=== PATIENT | female | born 1945 | race Caucasian/White ===

== ENCOUNTER 2025-09-09 10:07 | Emergency (ER) | payer MEDICARE, OTHER, SELFPAY ==
[2025-09-09] VITALS (13 sets, daily range): BP systolic 115–162; BP diastolic 63–95; PULSE 60–77; TEMP 36.1; O2SAT 94–98; BMI 21.1
--- OUTSIDE RECORDS SUMMARY | 2025-09-09 10:46 | XMS_ITS | Clinical Summary ---
Author Organization [facility] Address [address] [place] [address] Phone Care Team Providers Care Telephoner Name Role Phone Unavailable Primary Care Provider Unavailabl e Social History Tobacco UseTypesPacks/DayYears UsedDateSmoking Tobacco: Never Assessed CommentsUnknownSex and Gender InformationValueDate RecordedSex Assigned at Not on fileLegal YppVnajcf68/25/2022 4:55 PM ESTGender IdentityNot on fileSexual OrientationNot on file Plan of Treatment Not on file
--- NOTE | 2025-09-09 10:53 | ECG_ITS ---
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
--- NOTE | 2025-09-09 10:54 | CT_ITS ---
[address] [address] Patient Name: JACKIE MINOR MRN: [id number] date: 1945 Sex: F Assigned Patient Location: ER Current Patient Location: ER Accession/Order Number: [id number] Exam Date: 09/09/2025 11:05 Report Date: 09/09/2025 11:29 At the request of: FLACO GUEVARA MD Procedure: CT head/brain wo con Unenhanced head CT TECHNIQUE: Contiguous axial imaging of the head. The CT exam was performed using one or more the following dose reduction techniques: Automated exposure control, adjustment of the MA and/or Kv according to patient size, or use of the iterative reconstruction technique. COMPARISON: None HISTORY: Altered mental status. VENTRICLES: Within normal limits ATROPHY: Diffuse atrophy BRAIN PARENCHYMA: Decreased density of the white matter is most consistent with chronic small vessel disease. HEMORRHAGE: None HERNIATION: No mass effect or herniation INFARCTION: No recent vascular distribution infarction is seen. EXTRA-AXIAL FLUID COLLECTIONS None MIDBRAIN: Unremarkable GHADA: Unremarkable MEDULLA: Unremarkable SINUSES: Unremarkable ORBITS: Grossly unremarkable MASTOIDS: Unremarkable BONY STRUCTURES Intact ADDITIONAL FINDINGS: CT/CT head/brain wo con IMPRESSION: No acute findings. Impression dictated by: Flaco Baeza M.D. 09/09/2025 11:29 AM Dictation Location: [place] [address] Electronically authenticated by: [id number] Y Date: 09/09/2025 11:29
--- NOTE | 2025-09-09 10:55 | ED.GENADUL1 ---
HPI HPI - General Adult General Chief complaint: Altered Mental Status Stated complaint: HIGH BLOOD PRESSURE Time Seen by Provider: 09/09/25 10:12 Source: other Source information: ems Mode of arrival: ambulance History of Present Illness HPI narrative: Patient is a 80-year-old female who is presenting to the ER with chief complaint of intermittent combativeness, agitation. Is also noted the patient's blood pressure was in the 160s/100s. Patient has a history of Alzheimer's. Patient's daughter and sister at bedside, they are both power of ip technology transactions attorney's. Patient was given a dose of intramuscular 2.5 mg of Versed prior to arrival. Patient stays at a local nursing facility. Patient has Alzheimer's. Patient's baseline is alert and orient x 0. Patient arrives as a full code. Patient did eat breakfast this morning with no difficulty. There was a concern the patient was leaning to the left when she was walking the [place]. Patient normally walks with her 2 feet. Patient was suggested to come to the ER for evaluation from family. There is no other strokelike signs or symptoms that has been noted. When patient arrived, her blood pressure was not critically elevated, and she was calm, Versed has helped. Unless otherwise stated in this report or unable to obtain because of the patient's clinical or mental status as evidenced by medical record, the patient's positive and negative responses for review of systems for constitutional, eyes, ENT, cardiovascular, respiratory, gastrointestinal, neurological, , musculoskeletal, and integument systems and related systems to the presenting problem are either stated in the history of present illness or were not pertinent or were negative for the symptoms and/or complaints related to the presenting medical problem. Nurses note and vital signs reviewed and patient is not hypoxic. General: The patient appears well and in no apparent distress. Patient is resting comfortably on cart. Patient is not toxic, lethargic, or listless Skin: Warm, dry, no pallor noted. Patient has bilateral breast excoriation and chronic fungal infection underneath both breast, right greater than left. Underneath patient's bilateral breast, there is redness, excoriation and irritation, no secondary signs of abscess or drainage. Patient is prescribed daily antifungal medication to help with this. Jackie PERSAUD was at bedside when bilateral breasts were evaluated. Patient was rolled over to left lateral decubitus position. Patient has no evidence of stage I or stage II ulcerations. No signs of secondary infection. Patient was rolled back over. Yeah. No petechiae, purpura. Head: Normocephalic, atraumatic Eye: Normal conjunctiva, no drainage, EOMI. PERRL Ears, Nose, Mouth, and Throat: oral mucosa is moist. Nares patent. Mouth without vesicles. Cardiovascular: Regular Rate and Rhythm, no murmur, gallop, rub Respiratory: Patient is in no distress, no accessory muscle use, lungs are clear to auscultation, no wheezing, rales or rhonchi Back: non-tender, no CVA tenderness bilaterally to percussion. No CT LS midline pain GI: no tenderness to palpation, no masses appreciated. No rebound, guarding, or rigidity noted. No distention Musculoskeletal: Patient has full range of motion of all of the extremities, no motor, sensory, or focal neurological deficits Neurological: A&O x\0, patient is at her normal baseline., Minimal speech which is her normal baseline Psychiatric: Cooperative Related Data Home Medications ?Medication ?Instructions ?Recorded ?Confirmed atorvastatin 10 mg tablet 10 mg PO DAILY 09/09/25 09/09/25 donepezil 23 mg tablet 23 mg PO .QHS 09/09/25 09/09/25 dorzolamide 22.3 mg-timolol 6.8 1 drp ophthalmic (eye) Q12H 09/09/25 09/09/25 mg/mL eye drops lisinopril 10 mg tablet 10 mg PO DAILY 09/09/25 09/09/25 memantine 21 mg capsule 21 mg PO DAILY 09/09/25 09/09/25 sprinkle,extended release 24hr sertraline 100 mg tablet 100 mg PO .QHS 09/09/25 09/09/25 Previous Rx's ?Medication ?Instructions ?Recorded risperidone 1 mg tablet (Risperdal) 1 mg PO .qhs #10 tabs 09/09/25 Allergies Allergy/AdvReac Type Severity Reaction Status Date / Time No Known Drug Allergies Allergy Verified 09/09/25 10:21 Exam Constitutional Vital Signs, click to edit/add: Last Vital Signs Temp 97 F L 09/09/25 10:11 Pulse 63 09/09/25 11:00 Resp 21 H 09/09/25 11:00 BP 162/95 H 09/09/25 17:13 Pulse Ox 97 09/09/25 11:27 O2 Del Method Room Air 09/09/25 10:11 Course Vital Signs Vital signs: Vital Signs Temperature 97 F L 09/09/25 10:11 Pulse Rate 60 09/09/25 10:11 Respiratory Rate 20 09/09/25 10:11 Blood Pressure 115/68 09/09/25 10:11 Pulse Oximetry 97 09/09/25 10:11 Oxygen Delivery Method Room Air 09/09/25 10:11 Temperature 97 F L 09/09/25 10:11 Pulse Rate 63 09/09/25 11:00 Respiratory Rate 21 H 09/09/25 11:00 Blood Pressure 162/95 H 09/09/25 17:13 Pulse Oximetry 97 09/09/25 11:27 Oxygen Delivery Method Room Air 09/09/25 10:11 Medical Decision Making MDM Narrative Medical decision making narrative: Patient seen and examined: Patient had options of testing discussed with daughter and sister at bedside. Patient has no strokelike signs or symptoms during the initial evaluation. Recommendations and patient and sister agree with performing stroke evaluation, hydrating patient and make sure there is no other acute findings or etiology at this time. Differential diagnosis includes but is not limited to: Intracranial hemorrhage, brain mass, stroke, dehydration, electrolyte abnormality, hypoglycemia, ACS, UTI Relevant laboratory interpretation: Sodium was 151, potassium 3.1, chloride 114 Radiological studies: CT of the brain, Reevaluation: Patient was picking and irritated with her IV, IV was removed because patient was becoming more agitated. However we attempted to give patient Ativan through IV to left arm, and it was not functioning properly. IV was taken out. Patient and daughter and sister agreed with giving patient 2 shots of Ativan and droperidol to help with agitation and combativeness, patient was trying to get out of bed and is starting to get slightly combative and agitated. Patient was given IM injection of Ativan and droperidol. Patient was sedated and peaceful. Once patient's lab work came back, I discussed the results with patient's daughter and sister. Patient would benefit from an IV, IV fluids, IV potassium and oral potassium when she wakes up secondary to dehydration. Patient's daughter and sister agree. Patient was given 1 L of half-normal saline, along with oral potassium and IV potassium. 25 minutes was spent speaking on patient's CODE STATUS. Patient's daughter and sister both agree that they do not want patient to be a full code as initially stated in the paperwork. Patient daughter and sister are both power of ip technology transactions attorney's. After lengthy discussion of DNR CCA versus DNR CC, they have chosen DNR CC for this patient. Patient has had Alzheimer's and been in a nursing facility for 7 years. Social barriers to healthcare: There are no food insecurities, there is no issue with transportation, there are no insurance barriers. Disposition: Patient responded well to IV fluids and IV potassium. Patient will be discharged. Patient is now DNR CC. Patient daughter and sister are very thankful. Patient has been in the ER for over 6 hours. Patient has continuously been monitored. EKG interpretation. Normal sinus rhythm at 61 beats a minute. Left axis deviation. No acute ST elevation, no acute ectopy. QTc of 410. Artifact seen. 1218 patient required IM shots to help with sedation and combativeness, IM Ativan and droperidol. It took over 1.5 hours to get a hold of Dr. Navdeep Valiente, . 1235 I did speak to KINZA multiple times from the nursing facility, she is the resource development director. We were calling the facility, try to see how to get a hold of Dr. NAVDEEP Valiente. Several pages were called to him, [facility] to see who is covering his phone calls, then I eventually was able to get his cell phone number. I called left a message along with texting him. He finally was able to call me back in the ER, Dr. Valiente. He apologized, he was outside working and I was very thankful for his phone call. He recommended Risperdal 1 mg at nighttime oral, along with Ativan 1 mg oral as needed. Prescriptions were written and daughter and sister agree. Patient daughter in sister both agree with trying oral medication first instead of sending her to [facility] for admission for evaluation of advancing Alzheimer's, combativeness and agitation. Significant amount of time was spent with end-of-life care discussions, helping manage patient's agitation, try to get a hold of the nursing agency manager Alanna and patient's PCP Dr. Valiente, watching patient while she was getting IV fluids and IV potassium, and final disposition. Treatment of hypokalemia, hyponatremia, hypochloremia. And dehydration. Critical care time 47 minutes exclusive from separate billable procedures that were performed. The following was considered in the determination of critical care but not limited to the level of medical decision making, intensive cardiac and/or respiratory monitoring, frequent vital sign monitoring, evaluation of laboratory studies, evaluation of radiographic studies, oxygen monitoring, and constant monitoring and speaking to family at bedside Lab Data Labs: Lab Results 09/09/25 09/09/25 Range/Units 11:37 13:07 WBC 8.8 (4.0-11.0) 10^3/uL RBC 3.49 L (4.20-5.40) 10^6/uL Hgb 11.7 L (12.0-16.0) g/dL Hct 35.8 L (36.0-48.0) % MCV 102.6 H (81.0-99.0) fL MCH 33.5 (26.7-34.0) pg MCHC 32.7 (29.9-35.2) g/dL RDW 14.0 (11.0-15.0) % Plt Count 236 (150-450) 10^3/uL MPV 10.2 (9.5-13.5) fL Neut % (Auto) 77.6 H (43.0-75.0) % Lymph % (Auto) 11.1 L (20.5-60.0) % Cottle % (Auto) 7.3 (1.7-12.0) % Eos % (Auto) 3.4 (0.9-7.0) % Baso % (Auto) 0.3 (0.2-2.0) % Neut # (Auto) 6.8 H (1.4-6.5) 10^3/uL Lymph # (Auto) 1.0 L (1.2-3.8) 10^3/uL Cottle # (Auto) 0.6 (0.3-0.8) 10^3/uL Eos # (Auto) 0.3 (0.0-0.7) 10^3/uL Baso # (Auto) 0.0 (0.0-0.1) 10^3/uL Abs Immat Gran (auto) 0.03 (0.00-0.03) 10^3/uL Imm/Tot Granulo (auto) 0.3 (0.0-0.5) % Sodium 151 H (136-145) mmol/L Potassium 3.1 L (3.5-5.1) mmol/L Chloride 114 H (98-107) mmol/L Carbon Dioxide 30.2 (21.0-32.0) mmol/L Anion Gap 9.9 BUN 17.0 (7.0-18.0) mg/dL Creatinine 0.74 (0.55-1.02) mg/dL Est GFR ( Amer) >60 (>=60 mL/min/1.73m^2) Est GFR (Non-Af Amer) >60 (>=60 mL/min/1.73m^2) BUN/Creatinine Ratio 23.0 Glucose 107 H (74-106) mg/dL Calcium 9.5 (8.5-10.1) mg/dL Magnesium 2.1 (1.8-2.4) mg/dL Troponin I High Sens 6.8 (4.0-51.3) pg/mL Urine Color Yellow (YELLOW) Urine Clarity Clear (CLEAR) Urine pH 6.0 (5.0-9.0) Ur Specific [place] 1.020 (1.005-1.025) Urine Protein Negative (NEG/TRACE) mg/dL Urine Glucose (UA) Negative (NEGATIVE) mg/dL Urine Ketones Negative (NEGATIVE) mg/dL Urine Occult Blood Trace-i (NEGATIVE) Urine Nitrite Negative (NEGATIVE) Urine Bilirubin Negative (NEGATIVE) Urine Urobilinogen 1.0 (0.2-1.0) EU/dL Ur Leukocyte Esterase Negative (NEGATIVE) Urine RBC 0-2 (0-2) #/HPF Urine WBC 0-2 A (NONE SEEN) #/HPF Ur Squamous Epith Cells Rare (NONE/RARE) #/LPF Ur Transition Epith Cell Rare A (NONE SEEN) #/LPF Urine Crystals None seen (None Seen) #/HPF Urine Bacteria Trace A (NONE SEEN) #/HPF Urine Casts None seen (NONE SEEN) #/LPF Urine Mucus Small A (NONE SEEN) Discharge Plan Discharge Chief Complaint: Altered Mental Status Clinical Impression: Delirium due to general medical condition, Agitation, Counseling regarding end of life decision making, Hyponatremia, Dehydration, Hypokalemia Patient Disposition: Home, Self-Care Time of Disposition Decision: 16:55 Condition: Fair Prescriptions / Home Meds: New risperidone [Risperdal] 1 mg tablet 1 mg PO .qhs Qty: 10 0RF No Action atorvastatin 10 mg tablet 10 mg PO DAILY donepezil 23 mg tablet 23 mg PO .QHS dorzolamide-timolol 22.3-6.8 mg/mL drops 1 drp OPHTHALMIC (EYE) Q12H lisinopril 10 mg tablet 10 mg PO DAILY memantine 21 mg capsule,sprinkle,ER 24hr 21 mg PO DAILY sertraline 100 mg tablet 100 mg PO .QHS Print Language: Macedonian Instructions: Alzheimer Disease (DC), Acute Delirium (ED), Insomnia (ED) Additional Instructions: I have spoken to Dr. Navdeep Valiente. New prescriptions are being started: Resporal 1 mg at bedtime daily. Ativan 1 mg tablet every 6-8 hours as needed agitation, badness Referrals: NAVDEEP VALIENTE DO [Primary Care Provider] - 1 week Discharge Date/Time: 09/09/25 17:34
[2025-09-09] MEDS: 0.9 % SODIUM CHLORIDE 1,000 ML 999 ML IV (11:46)
[2025-09-09 11:58] LABS: Hematocrit 35.8 % (36.0-48.0); Hemoglobin 11.7 g/dL (12.0-16.0); Immature Granulocytes Abs Auto 0.03 10^3/uL (0.00-0.03); Immature Granulocytes Pct Auto 0.3 % (0.0-0.5); Lymphocytes Absolute Auto 1.0 10^3/uL (1.2-3.8); Mean Corpuscular HGB Conc 32.7 g/dL (29.9-35.2); Mean Corpuscular Hemoglobin 33.5 pg (26.7-34.0); Mean Corpuscular Volume 102.6 fL (81.0-99.0); Platelet Count 236 10^3/uL (150-450); Red Blood Count 3.49 10^6/uL (4.20-5.40); White Blood Count 8.8 10^3/uL (4.0-11.0)
[2025-09-09] MEDS: LORAZEPAM 2 MG/ML VIAL IM (12:20)
[2025-09-09 12:29] LABS: Anion Gap 9.9; Blood Urea Nitrogen 17.0 mg/dL (7.0-18.0); Calcium 9.5 mg/dL (8.5-10.1); Carbon Dioxide 30.2 mmol/L (21.0-32.0); Chloride 114 mmol/L (98-107); Estimated GFR (African America >60 (>=60 mL/min/1.73m^2); Estimated GFR (Non-African Ame >60 (>=60 mL/min/1.73m^2); Glucose 107 mg/dL (74-106); Magnesium 2.1 mg/dL (1.8-2.4); Potassium 3.1 mmol/L (3.5-5.1); Sodium 151 mmol/L (136-145)
[2025-09-09 13:42] LABS: Glucose Urine UA NEGATIVE (NEGATIVE)
[2025-09-09 13:52] LABS: Cast Seen? NONE SEEN #/LPF (NONE SEEN); Crystals Seen? None Seen #/HPF (None Seen)
[2025-09-09] MEDS: SODIUM CHLORIDE 0.45 % 1,000 ML 1000 ML IV (14:08)
[2025-09-09] MEDS: POTASSIUM CHLORIDE 20 MEQ in 0.9 % SODIUM CHLORIDE 250 ML 130 MEQ IV (14:08)
[2025-09-09] MEDS: POTASSIUM BICARBONATE/CIT 25 MEQ TABLET EFF 50 MEQ PO (15:03)
== END 2025-09-09 17:34 | disposition home or self-care (01) ==
PROVIDERS: Emergency Provider Emergency Medicine; PCP Family Medicine
DX: G30.9 Alzheimer's disease, unspecified (principal); F02.811 Dementia in other diseases classified elsewhere, unspecified severity, with agitation; E86.0 Dehydration; E87.6 Hypokalemia; B36.9 Superficial mycosis, unspecified; Z66 Do not resuscitate; E87.1 Hypo-osmolality and hyponatremia; E87.8 Other disorders of electrolyte and fluid balance, not elsewhere classified; F05 Delirium due to known physiological condition
CPT/HCPCS: 36415; 70450; 80048; 81001; 83735; 84484; 85025; 93005; 96361; 96365; 96366; 96372; 99285; J2060; J3480